=== PATIENT | male | born 1960 | race Caucasian/White ===

== ENCOUNTER 2016-06-16 11:33 | Emergency (ER) ==
[2016-06-16 11:39] VITALS: BP 153/95; TEMP 97.5; BMI 27.8
--- NOTE | 2016-06-16 12:00 | ED.PDOC ---
General ED Provider: Dr. LIONEL HAYES JR Chief Complaint: Bite Stated Complaint: awakened by stinging pain last nite--saw small insect-- assumes it was spider--this am has swelling and tenderness to testicle--sl discoloration[End]OFF BROWN IN COLOR VERY SMALL 97.5 75 20 96% 153/95 11/05 Time Seen by Physician: 11:56 Mode of Arrival: Walk-In Information Source: Patient Exam Limitations: No limitations Primary Care Provider: JOY DOWELL Nursing and Triage Documentation Reviewed and Agree: No Review of Systems - Review Of Systems Constitutional: Reports: Malaise Eyes: Reports: No symptoms Ears, Nose, Mouth, Throat: Reports: No symptoms Respiratory: Reports: No symptoms Cardiac: Reports: No symptoms GI: Reports: No symptoms : Reports: No symptoms Musculoskeletal: Reports: No symptoms Skin: Reports: Bruising (5mm lesion right inferior scrotum with erythema and edemaabout 2cm firmness no eschar postitive abrasion) Neurological: Reports: Anxiety Endocrine: Reports: No symptoms Hematologic/Lymphatic: Reports: No symptoms All Other Systems: Other Past Medical History - Past Medical History Previously Healthy: Yes Endocrine: Reports: Hypothyroid Cardiovascular: Reports: Hypertension Respiratory: Reports: None Hematological: Reports: None Gastrointestinal: Reports: None Genitourinary: Reports: None Neuro/Psych: Reports: None Musculoskeletal: Reports: Other Cancer: Reports: Other Other Pertinent Past Medical History: 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 - Surgical History General Surgical History: Reports: Cholecystectomy, Orthopedic (left shoulder repair), Other (THYROIDECTOMY, STOMACH WRAP) - Family History Family History: Reports: Unknown - Social History Smoking Status: Former smoker Hx Substance Use: No Alcohol Screening: None Physical Exam - Physical Exam Appearance: Well-appearing Pain Distress: Moderate Neck: Supple Respiratory: Airway patent Skin: Warm, Dry (note lesion) Neurological: Sensation intact, Alert, Oriented Psychiatric: Anxious Re-Evaluation - Re-Evaluation Time of Re-Evaluation: 12:06 Status: Unchanged (STATES ALLERGIC TO ALL NSAIDS) - Re-Evaluation Time of Re-Evaluation: 12:38 (PATIENT AND FEEL IS INCREASING IN PAIN AND SWELLING NOTE PATIETN WIPES NOSE AFTER PUSHING ON GROIN LESION) Status: Unchanged Additional Comments: WILL RX BACTRIM Critical Care Note - Critical Care Note Total Time (mins): 0 Course - Course Orders, Labs, Meds: Orders Category Date Time Status Butorphanol Tartrate [Stadol] MEDS 06/16/16 12:04 Discontinued 2 mg IM ONCE STA Promethazine HCl [Phenergan 25 mg/ml Vial] MEDS 06/16/16 12:05 Discontinued 25 mg IM ONCE STA Medications Discontinued Medications Generic Name Dose Route Start Last Admin Trade Name Freq PRN Reason Stop Dose Admin Butorphanol Tartrate 2 mg 06/16/16 12:04 06/16/16 12:20 Stadol IM 06/16/16 12:05 2 mg ONCE STA Administration Promethazine HCl 25 mg 06/16/16 12:05 06/16/16 12:19 Phenergan 25 Mg/Ml Vial IM 06/16/16 12:06 25 mg ONCE STA Administration Vital Signs: Temp Pulse Resp BP Pulse Ox 06/16/16 11:33 97.5 F L 75 20 153/95 H 96 Departure - Departure Time of Disposition: 11:56 Disposition: HOME SELF-CARE Discharge Problem: Spider bite, venomous Instructions: Brown Re[place] Spider Bite (ED) Condition: Good Pt referred to PMD for follow-up: Yes Additional Instructions: REMOVER RUFFLES AND ITEMS UNDER BED HAVE JUST 4 LEGS IN CONTACT WITH GROUND STICKY TRAPS MAY ELIMINATE SPIDERS FROM HOUSE [place] FOR PAIN ICE PACKS FOUR TIMES A DAY RECHECK ONE WEEK PMD RETURN IF SIGNIFICANTLY MORE SWELLING OR DRAINAGE ANTIBIOTIC BACTRIM PRESCRIBED Prescriptions: Hydrocodone Bit/Acetaminophen [[place] 5-325] 1 - 2 tab PO Q6HR PRN #12 tablet PRN Reason: pain Sulfamethoxazole/Trimethoprim [Bactrim Ds Tablet] 1 tab PO Q12HR #20 tablet Allergies/Adverse Reactions: Allergies celecoxib [From Celebrex] Adverse Reaction (Verified 06/16/16 11:41) gabapentin [From Neurontin] Adverse Reaction (Verified 06/16/16 11:41) Latex, Natural Rubber Adverse Reaction (Verified 06/16/16 11:41) metaxalone [From Skelaxin] Adverse Reaction (Verified 06/16/16 11:41) NSAIDS (Non-Steroidal Anti-Inflamma Adverse Reaction (Verified 06/16/16 11:41) rofecoxib [From Vioxx] Adverse Reaction (Verified 06/16/16 11:41) tramadol HCl [From Ultram] Adverse Reaction (Verified 06/16/16 11:41) Home Medications: Ambulatory Orders Amlodipine Besylate [Norvasc] 10 mg PO DAILY 04/06/14 Hydrochlorothiazide 25 mg PO DAILY 04/06/14 Levothyroxine Sodium [Synthroid] 175 mcg PO DAILY 04/06/14 Lisinopril [Zestril] 40 mg PO DAILY 04/06/14 Multivitamin/Iron/Folic Acid [Daily Multiple Tablet] 1 each PO DAILY 04/06/14 Pantoprazole Sodium [Protonix] 40 mg PO BID #60 tablet. 10/26/14 Carvedilol 12.5 mg PO BID 11/25/15 Hydrocodone Bit/Acetaminophen [[place] 5-325] 1 - 2 tab PO Q6HR PRN #12 tablet Sulfamethoxazole/Trimethoprim [Bactrim Ds Tablet] 1 tab PO Q12HR #20 tablet
[2016-06-16] MEDS ORDERED: STADOL IM STA (12:04)
[2016-06-16] MEDS ORDERED: PHENERGAN 25 MG/ML VIAL IM STA (12:05)
== END 2016-06-16 13:04 | disposition home or self-care (01) ==
LOC: ED 11:33
DX: T63.331A Toxic effect of venom of brown recluse spider, accidental (unintentional), initial encounter (principal)
CPT/HCPCS: 96372; 99282

== ENCOUNTER 2016-08-14 16:30 | Emergency (ER) | payer OTHER ==
[2016-08-14 16:37] VITALS: BP 123/88; TEMP 97.9; BMI 26.9
[2016-08-14 16:59] LABS: BASOPHILS % (AUTO) 0.4 % (0.0-3.0); EOSINOPHILS # (AUTO) 0.1 K/ul (0.0-0.7); EOSINOPHILS % (AUTO) 0.8 % (0.0-7.0); HEMATOCRIT 38.1 % (42.0-52.0); HEMOGLOBIN 13.8 g/dl (14.0-18.0); IMMATURE GRANULOCYTE % (AUTO) 0.6 % (0.0-5.0); LYMPHOCYTES % (AUTO) 14.6 (10.0-50.0); MEAN CORPUSCULAR HEMOGLOBIN 30.8 pg (27.0-31.0); MEAN CORPUSCULAR HGB CONC 36.2 (31.8-35.4); MONOCYTES # (AUTO) 0.4 K/uL (0.4-2.0); MONOCYTES % (AUTO) 6.2 (0-10); NEUTROPHILS # (AUTO) 5.5 K/ul (2.0-6.9); NEUTROPHILS % (AUTO) 77.4; PLATELET COUNT 230 10^3/uL (140-440); RED BLOOD COUNT 4.48 10^6/ul (4.70-6.10); WHITE BLOOD COUNT 7.14 K/ul (4.2-10.2)
[2016-08-14 17:27] LABS: ALANINE AMINOTRANSFERASE 23 U/L (12-78); ALBUMIN/GLOBULIN RATIO 1.29; ALKALINE PHOSPHATASE 56 U/L (50-136); AMYLASE 60 U/L (25-115); ANION GAP 15.8; ASPARTATE AMINO TRANSFERASE 18 U/L (15-37); BILIRUBIN,TOTAL 0.65 mg/dL (0.00-1.20); BLOOD UREA NITROGEN 15 mg/dL (7-18); BUN/CREATININE RATIO 13.27; CALCIUM 9.1 mg/dL (8.2-10.2); CARBON DIOXIDE 22 mmol/L (21-32); CHLORIDE 103 mmol/L (98-107); CREATINE KINASE 94 U/L; CREATININE 1.13 mg/dL (0.60-1.10); GLUCOSE 109 mg/dL (70-100); LIPASE 19 U/L (8-78); POTASSIUM 3.8 mmol/L (3.5-5.1); SODIUM 137 mmol/L (136-145); TOTAL PROTEIN 7.1 g/dL (6.4-8.2)
[2016-08-14 17:42] LABS: ADD URINE MICROSCOPIC YES; BILIRUBIN,URINE 1+ (NEGATIVE); KETONES,URINE 1+ (NEGATIVE); LEUKOCYTE ESTERASE ,URINE Negative (NEGATIVE); NITRITE,URINE Negative (NEGATIVE); PROTEIN,URINE 1+ (NEGATIVE); URINE, BLOOD Negative (NEGATIVE)
[2016-08-14 17:43] LABS: BACTERIA,URINE TRACE (NOT PRESENT)
[2016-08-14 17:47] LABS: COCAIN SCREEN,URINE NEGATIVE (NEGATIVE)
--- NOTE | 2016-08-14 18:08 | CT ---
Examination: CT abdomen and pelvis without contrast 08/14/2016 Clinical information: Vomiting, abdominal pain. Comparison: 10/26/2015. TECHNIQUE: Noncontrast helical imaging from the lung bases to the symphysis pubis. 3 mm axial, sag ittal and coronal images are submitted for review. FINDINGS: Axial images through the lung bases demonstrate a moderate-sized hiatal hernia. No conso lidative infiltrate or pleural effusion is seen. The noncontrast CT appearance of the liver, spleen , and pancreas within normal limits. A 14 mm peripherally calcified structure within the epigastric region may represent a calcified node or fat necrosis. This does not appear to be associated with the splenic artery or adrenal gland. Mild low density nodular enlargement of the left adrenal gland most compatible with benign adenomatous enlargement. Noncontrast CT appearance of the right adrena l gland is within normal limits. There are cholecystectomy clips within the gallbladder fossa. The kidneys are normal in size and configuration. There is no hydronephrosis or obvious urolithiasis. The abdominal aorta is normal in course and caliber. No free fluid is seen within the abdomen or pel vis. There is no bowel obstruction. There is colonic diverticulosis without evidence of diverticul itis. A normal appendix is identified. There is no inflammatory fat stranding. Within the pelvis, urinary bladder is partially collapsed. Seminal vesicles are symmetric in size and attenuation. T here are degenerative changes throughout the lumbar spine. There is a retrolisthesis of L3 on L4. L 2-L3 through L4-L5 vacuum disc. Multilevel hypertrophic facet arthropathy. Overall, no significant interval change given differences in scan technique when compared to 10/25/2014. Impression: 1. No CT evidence of acute abnormality within the abdomen or pelvis. No significant change compare d to 10/25/2014. 2. Hiatal hernia. 3. Cholecystectomy clips. 4. Benign adenomatous enlargement of the left adrenal gland. 5. Colonic diverticulosis without diverticulitis. 6. Degenerative changes lumbar spine.
--- NOTE | 2016-08-14 18:12 | ED.PDOC ---
General ED Provider: Dr. BRYAN MARINO Chief Complaint: Nausea/Vomiting Stated Complaint: n/v/ abdominal pain Time Seen by Physician: 16:30 Mode of Arrival: Walk-In Information Source: Patient Exam Limitations: No limitations Primary Care Provider: GARRET BRODERICK Nursing and Triage Documentation Reviewed and Agree: Yes GI Complaint Exam - Abdominal Pain Complaint/Exam Onset: Gradual Duration: 1 day Symptoms Are: Resolved Timing: Intermittent Initial Severity: Moderate Current Severity: None Location of Pain: Diffuse Character: Reports: Dull, Cramping Aggravating: Reports: None Alleviating: Reports: None Associated Signs and Symptoms: Denies: Diaphoresis, Fever, Cough, Chest pain, Dizziness, Back pain, Constipation, Blood in stool, Dysuria, Urinary frequency, Decreased urine output, Decreased appetite, Discharge, Nausea, Vomiting, Diarrhea, Decreased activity Cardiac Risk Factors: Reports: None, Hypertension Testicular Torsion Risk Factors: Reports: None Surgical Obstruction Risk Factors: Reports: None Related Surgical History: Reports: None Abdominal Findings: Present: None Differential Diagnoses: Bowel Obstruction, Diverticulitis Quality Indicators for AMI: EKG in 10min. Quality Indicators for Cardiac Chest Pain: EKG in 10min. Quality Indicator For Non-Traumatic Chest Pain/Syncope: EKG Performed Review of Systems - Review Of Systems Constitutional: Reports: No symptoms Eyes: Reports: No symptoms Ears, Nose, Mouth, Throat: Reports: No symptoms Respiratory: Reports: No symptoms Cardiac: Reports: No symptoms GI: Reports: Abdominal pain, Nausea, Vomiting : Reports: No symptoms Musculoskeletal: Reports: No symptoms Skin: Reports: No symptoms Neurological: Reports: No symptoms Endocrine: Reports: No symptoms Hematologic/Lymphatic: Reports: No symptoms All Other Systems: Reviewed and Negative Past Medical History - Past Medical History Previously Healthy: Yes Endocrine: Reports: Hypothyroid Cardiovascular: Reports: Hypertension Respiratory: Reports: None Hematological: Reports: None Gastrointestinal: Reports: None Genitourinary: Reports: None Neuro/Psych: Reports: None Musculoskeletal: Reports: Other Cancer: Reports: Other Other Pertinent Past Medical History: 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 - Surgical History General Surgical History: Reports: Cholecystectomy, Orthopedic (left shoulder repair), Other (THYROIDECTOMY, STOMACH WRAP) - Family History Family History: Reports: Unknown - Social History Smoking Status: Former smoker Hx Substance Use: No Alcohol Screening: None - Immunizations Tetanus Shot up to Date: No Physical Exam - Physical Exam Appearance: Well-appearing, No pain distress, Well-nourished Eyes: [place], EOMI, Conjunctiva clear ENT: Ears normal, Nose normal, Oropharynx normal Respiratory: Airway patent, Breath sounds clear, Breath sounds equal, Respirations nonlabored Cardiovascular: RRR, Pulses normal, No rub, No murmur GI/: Soft, Nontender, No masses, Bowel sounds normal, No Organomegaly Musculoskeletal: Normal strength, ROM intact, No edema, No calf tenderness Skin: Warm, Dry, Normal color Neurological: Sensation intact, Motor intact, Reflexes intact, Cranial nerves intact, Alert, Oriented Psychiatric: Affect appropriate, Mood appropriate Interpretation - Radiology Interpretation Radiology Interpretation By: Radiologist Radiology Results: No acute changes Critical Care Note - Critical Care Note Total Time (mins): 0 Course - Course Hematology/Chemistry: 08/14/16 16:50 08/14/16 16:50 Orders, Labs, Meds: Lab Review 08/14/16 08/14/16 08/14/16 16:50 17:00 17:30 WBC 7.14 RBC 4.48 L Hgb 13.8 L Hct 38.1 L MCV 85.0 MCH 30.8 MCHC 36.2 H RDW Coeff of [place] 12.5 Plt Count 230 Immature Gran % (Auto) 0.6 Neut % (Auto) 77.4 Lymph % (Auto) 14.6 [place] % (Auto) 6.2 Eos % (Auto) 0.8 Baso % (Auto) 0.4 Immature Gran # (Auto) 0.0 Neut # 5.5 Lymph # 1.0 [place] # 0.4 Eos # 0.1 Baso # 0.0 Sodium 137 Potassium 3.8 Chloride 103 Carbon Dioxide 22 Anion Gap 15.8 BUN 15 Creatinine 1.13 H Estimated GFR (MDRD) 68.00 BUN/Creatinine Ratio 13.27 Glucose 109 H Lactic Acid 7.7 Calcium 9.1 Total Bilirubin 0.65 AST 18 ALT 23 Alkaline Phosphatase 56 Total Creatine Kinase 94 Troponin I < 0.0100 Total Protein 7.1 Albumin 4.0 Globulin 3.1 Albumin/Globulin Ratio 1.29 Amylase 60 Lipase 19 Procalcitonin < 0.05 Urine Color Yellow Urine Clarity Clear Urine pH 6.0 Ur Specific [place] 1.020 Urine Protein 1+ Urine Glucose (UA) Negative Urine Ketones 1+ Urine Blood Negative Urine Nitrite Negative Urine Bilirubin 1+ Urine Urobilinogen 0.2 Ur Leukocyte Esterase Negative Urine Microscopic RBC 2-5 Ur Squamous Epith Cells 0-2 Urine Bacteria Trace Urine Opiates Screen Negative Ur Oxycodone Screen Negative Urine Methadone Screen Negative Ur Propoxyphene Screen Negative Ur Barbiturates Screen Negative U Tricyclic Antidepress Negative Ur Phencyclidine Scrn Negative Ur Amphetamine Screen Negative U Methamphetamines Scrn Negative U Benzodiazepines Scrn Negative Urine Cocaine Screen Negative U Cannabinoids Screen Positive Orders Category Date Time Status EKG-(ED ONLY) Stat CARDIO 08/14/16 16:47 Completed AMYLASE Stat LAB 08/14/16 16:50 Completed BLOOD CULTURE Stat LAB 08/14/16 16:50 Received CBC W/ AUTO DIFF Stat LAB 08/14/16 16:50 Completed COMPREHENSIVE METABOLIC PANEL Stat LAB 08/14/16 16:50 Completed CREATINE KINASE Stat LAB 08/14/16 16:50 Completed DRUG SCREEN (RAPID FOR ED) [DRUG SCREEN, URINE, RAPID] LAB 08/14/16 17:00 Completed Stat LACTIC ACID Stat LAB 08/14/16 16:50 Completed LIPASE Stat LAB 08/14/16 16:50 Completed PROCALCITONIN Stat LAB 08/14/16 16:50 Completed TROPONIN I Stat LAB 08/14/16 16:50 Completed URINALYSIS C & S IF INDICATED Stat LAB 08/14/16 17:[address] ABDOMEN/PELVIS WO CONTRAST Stat RADS 08/14/16 16:46 Completed Vital Signs: Temp Pulse Resp BP Pulse Ox 08/14/16 16:30 97.9 F 85 20 123/88 96 Departure - Departure Time of Disposition: 18:12 Disposition: HOME SELF-CARE Discharge Problem: Abdominal pain Qualifiers: Abdominal location: generalized Qualifier Code: (R10.84) Generalized abdominal pain Instructions: Abdominal Pain (ED) Condition: Good Pt referred to PMD for follow-up: No Allergies/Adverse Reactions: Allergies celecoxib [From Celebrex] Adverse Reaction (Verified 08/14/16 16:41) gabapentin [From Neurontin] Adverse Reaction (Verified 08/14/16 16:41) Latex, Natural Rubber Adverse Reaction (Verified 08/14/16 16:41) metaxalone [From Skelaxin] Adverse Reaction (Verified 08/14/16 16:41) NSAIDS (Non-Steroidal Anti-Inflamma Adverse Reaction (Verified 08/14/16 16:41) rofecoxib [From Vioxx] Adverse Reaction (Verified 08/14/16 16:41) tramadol HCl [From Ultram] Adverse Reaction (Verified 08/14/16 16:41) Home Medications: Ambulatory Orders Amlodipine Besylate [Norvasc] 10 mg PO DAILY 04/06/14 Hydrochlorothiazide 25 mg PO DAILY 04/06/14 Levothyroxine Sodium [Synthroid] 175 mcg PO DAILY 04/06/14 Lisinopril [Zestril] 40 mg PO DAILY 04/06/14 Multivitamin/Iron/Folic Acid [Daily Multiple Tablet] 1 each PO DAILY 04/06/14 Pantoprazole Sodium [Protonix] 40 mg PO BID #60 tablet. 10/26/14 Carvedilol 12.5 mg PO BID 11/25/15
== END 2016-08-14 18:28 | disposition home or self-care (01) ==
LOC: ED 16:30
DX: R10.84 Generalized abdominal pain (principal); R11.2 Nausea with vomiting, unspecified; R80.9 Proteinuria, unspecified; E03.9 Hypothyroidism, unspecified; I10 Essential (primary) hypertension; Z79.899 Other long term (current) drug therapy
CPT/HCPCS: 36415; 80053; 80306; 81001; 82150; 82550; 83605; 83690; 84145; 84484; 85025; 87040; 93005; 93010; 99284

== ENCOUNTER 2016-08-17 01:44 | Outpatient (CLI) | END 2016-08-17 01:45 | disposition home or self-care (01) | LOC: AMBL 01:44 | PROVIDERS: ATTEND Family Medicine | DX: R11.2 Nausea with vomiting, unspecified (principal); R10.9 Unspecified abdominal pain; K44.9 Diaphragmatic hernia without obstruction or gangrene; K21.9 Gastro-esophageal reflux disease without esophagitis; I10 Essential (primary) hypertension ==

== ENCOUNTER 2016-12-21 11:24 | Emergency (ER) ==
[2016-12-21 11:28] VITALS: BP 118/80; TEMP 97.5; BMI 24.4
--- NOTE | 2016-12-21 11:41 | ED.PDOC ---
General ED Provider: Dr. BRYAN MARINO Chief Complaint: Tooth Problem Stated Complaint: DENTAL PAIN Time Seen by Physician: 11:24 Mode of Arrival: Walk-In Information Source: Patient Exam Limitations: No limitations Primary Care Provider: GARRET BRODERICK Nursing and Triage Documentation Reviewed and Agree: Yes EENT Complaint Exam - Dental/Oral Complaint/Exam Mechanism of Injury: No known trauma Onset/Duration: 2 WEEKS Symptoms Are: Still present Timing: Intermittent Initial Severity: Moderate Current Severity: Moderate Character: Reports: Throbbing Aggravating: Reports: Heat, Cold, Chewing Alleviating: Reports: None Associated Signs and Symptoms: Denies: Swelling, Discharge, Fever, Foul odor, Foul taste in mouth Related History: Reports: Similar episode Tooth Findings: Present: Gross decay, Gross caries Facial Swelling Present: No Bleeding Present: No Oropharynx Findings: Absent: Clots, Active bleeding Septal Hematoma: No Foreign Body Present: No Dysphagia Present: No Drooling Present: No Asymmetrical Tonsillar Swelling Present: No Uvula Midline: No Desi-tonsillar Fluctuence: No Trismus Present: No Palatal Petechiae Present: No Scarlatinaform Rash Present: No Teeth Picture: 1 - DECAY Differential Diagnoses: Fractured Tooth Review of Systems - Review Of Systems Constitutional: Reports: No symptoms Eyes: Reports: No symptoms Ears, Nose, Mouth, Throat: Reports: No symptoms Respiratory: Reports: No symptoms Cardiac: Reports: No symptoms GI: Reports: No symptoms : Reports: No symptoms Musculoskeletal: Reports: No symptoms Skin: Reports: No symptoms Neurological: Reports: No symptoms Endocrine: Reports: No symptoms Hematologic/Lymphatic: Reports: No symptoms All Other Systems: Reviewed and Negative Past Medical History - Past Medical History Previously Healthy: Yes Endocrine: Reports: Hypothyroid Cardiovascular: Reports: Hypertension Respiratory: Reports: None Hematological: Reports: None Gastrointestinal: Reports: None Genitourinary: Reports: None Neuro/Psych: Reports: None Musculoskeletal: Reports: Other Cancer: Reports: Other Other Pertinent Past Medical History: 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 - Surgical History General Surgical History: Reports: Cholecystectomy, Orthopedic (left shoulder repair), Other (THYROIDECTOMY, STOMACH WRAP) - Family History Family History: Reports: Unknown - Social History Smoking Status: Former smoker Hx Substance Use: No Alcohol Screening: None Physical Exam - Physical Exam Appearance: Well-appearing, No pain distress, Well-nourished Eyes: [place], EOMI, Conjunctiva clear ENT: Ears normal, Nose normal, Oropharynx normal Respiratory: Airway patent, Breath sounds clear, Breath sounds equal, Respirations nonlabored Cardiovascular: RRR, Pulses normal, No rub, No murmur GI/: Soft, Nontender, No masses, Bowel sounds normal, No Organomegaly Musculoskeletal: Normal strength, ROM intact, No edema, No calf tenderness Skin: Warm, Dry, Normal color Neurological: Sensation intact, Motor intact, Reflexes intact, Cranial nerves intact, Alert, Oriented Psychiatric: Affect appropriate, Mood appropriate Critical Care Note - Critical Care Note Total Time (mins): 0 Course - Course Vital Signs: Temp Pulse Resp BP Pulse Ox 12/21/16 11:24 97.5 F L 72 18 118/80 96 Departure - Departure Time of Disposition: 11:40 Disposition: HOME SELF-CARE Discharge Problem: Toothache Instructions: Toothache (ED) Condition: Good Pt referred to PMD for follow-up: Yes Additional Instructions: Please call your Family Physician as soon as possible to schedule a follow-up appointment. Allergies/Adverse Reactions: Allergies celecoxib [From Celebrex] Adverse Reaction (Verified 12/21/16 11:28) gabapentin [From Neurontin] Adverse Reaction (Verified 12/21/16 11:28) Latex, Natural Rubber Adverse Reaction (Verified 12/21/16 11:28) metaxalone [From Skelaxin] Adverse Reaction (Verified 12/21/16 11:28) NSAIDS (Non-Steroidal Anti-Inflamma Adverse Reaction (Verified 12/21/16 11:28) rofecoxib [From Vioxx] Adverse Reaction (Verified 12/21/16 11:28) tramadol HCl [From Ultram] Adverse Reaction (Verified 12/21/16 11:28) Home Medications: Ambulatory Orders Amlodipine Besylate [Norvasc] 10 mg PO DAILY 04/06/14 Hydrochlorothiazide 25 mg PO DAILY 04/06/14 Levothyroxine Sodium [Synthroid] 175 mcg PO DAILY 04/06/14 Lisinopril [Zestril] 40 mg PO DAILY 04/06/14 Multivitamin/Iron/Folic Acid [Daily Multiple Tablet] 1 each PO DAILY 04/06/14 Pantoprazole Sodium [Protonix] 40 mg PO BID #60 tablet. 10/26/14 Carvedilol 12.5 mg PO BID 11/25/15
== END 2016-12-21 11:50 | disposition home or self-care (01) ==
LOC: ED 11:24
DX: K08.89 Other specified disorders of teeth and supporting structures (principal); K02.7 Dental root caries
CPT/HCPCS: 99282

== ENCOUNTER 2018-01-19 10:14 | Emergency (ER) ==
[2018-01-19 10:15] VITALS: BMI 24.4
[2018-01-19 10:26] VITALS: BP 147/93; TEMP 97.6
--- NOTE | 2018-01-19 11:18 | ED.PDOC ---
General ED Provider: Dr. BRYAN MARINO Chief Complaint: Chest Wall Injury/Pain Stated Complaint: CHEST WALL INJURY LUQ WELL FELL OR TRIPPED OVER HIS PET DOG Time Seen by Physician: 10:17 Mode of Arrival: Walk-In Information Source: Patient Exam Limitations: No limitations Primary Care Provider: GARRET BRODERICK Nursing and Triage Documentation Reviewed and Agree: Yes Does patient meet sepsis criteria?: No If yes, has appropriate treatment been initiated?: No System Inflammatory Response Syndrome: Not Applicable (PLEASE SEE PHOTOS ) Sepsis Protocol: For patient's 13 years and over: Temp is 96.8 and below OR 101 and greater Pulse >90 BPM Resp >20/minute Acutely Altered Mental Status Are patient's symptoms suggestive of a new infection, such as: -Pneumonia -Skin, Soft Tissue -Endocarditis -UTI -Bone, Joint Infection -Implantable Device -Acute Abdominal Infection -Wound Infection -Meningitis -Blood Stream Catheter Infection -Unknown Trauma/Injury Complaint Exam - Trauma Complaint/Exam Location of Pain or Injury: Reports: Chest, Abdomen. Denies: Head, Scalp, Face , Neck, RUE, LUE, Back, RLE, LLE Mechanism of Injury: Reports: Fall Onset/Duration: TODAY Symptoms Are: Still present Timing of Treatment: Immediate Initial Severity: Mild Current Severity: Mild Character: Reports: Aching Aggravating: Reports: Movement Alleviating: Reports: Rest Associated Signs and Symptoms: Denies: LOC, Confusion, Memory loss, Lethargy, Vomiting, Bleeding, Bruising, Swelling, Extremity disuse, Painful respiration, Hoarseness, Dysphagia, Hemoptysis, Significant blood loss Penetrating Injury Risk Factors: Reports: None Related Surgical History: Reports: None Nexus Low Risk Criteria: No post-midline CS tender, No evidence of intoxicat., No Altered LOC, No focal neuro deficit, No distracting injuries Immobilization Removed Post Exam: No Glascow Coma Scale (see protocol): 15 Compartment Syndrome Risk Factors: Present: Pain Trauma Findings: Absent: [place] eyes, Hemotympanum, Nasal deformity, Dental tenderness, Dental injury, Dental malocclusion, Neck tenderness, Neck spasm, SubQ Air, Crepitus, Airway obstructed, Trachea displaced, Labored respirations, Decreased breath sounds, Muffled heart sounds, Weak pulses, Absent pulses, Abdominal distention, Pelvic tenderness, Pelvic instability Review of Systems - Review Of Systems Constitutional: Reports: No symptoms Eyes: Reports: No symptoms Ears, Nose, Mouth, Throat: Reports: No symptoms Respiratory: Reports: No symptoms Cardiac: Reports: Chest pain (WALL LEFT SIDED ) GI: Reports: No symptoms : Reports: No symptoms Musculoskeletal: Reports: No symptoms Skin: Reports: No symptoms Neurological: Reports: No symptoms Endocrine: Reports: No symptoms Hematologic/Lymphatic: Reports: No symptoms All Other Systems: Reviewed and Negative Past Medical History - Past Medical History Previously Healthy: Yes Endocrine: Reports: Hypothyroid Cardiovascular: Reports: Hypertension Respiratory: Reports: None Hematological: Reports: None Gastrointestinal: Reports: None Genitourinary: Reports: None Neuro/Psych: Reports: None Musculoskeletal: Reports: Other Cancer: Reports: Other Other Pertinent Past Medical History: 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 - Surgical History General Surgical History: Reports: Cholecystectomy, Orthopedic (left shoulder repair), Other (THYROIDECTOMY, STOMACH WRAP) - Family History Family History: Reports: Unknown - Social History Smoking Status: Former smoker Hx Substance Use: No Alcohol Screening: None Physical Exam - Physical Exam Appearance: Well-appearing, No pain distress, Well-nourished Eyes: [place], EOMI, Conjunctiva clear ENT: Ears normal, Nose normal, Oropharynx normal Respiratory: Airway patent, Breath sounds clear, Breath sounds equal, Respirations nonlabored Cardiovascular: RRR, Pulses normal, No rub, No murmur GI/: Soft, Nontender, No masses, Bowel sounds normal, No Organomegaly Musculoskeletal: Normal strength, ROM intact, No edema, No calf tenderness Skin: Warm, Dry, Normal color Neurological: Sensation intact, Motor intact, Reflexes intact, Cranial nerves intact, Alert, Oriented Psychiatric: Affect appropriate, Mood appropriate Re-Evaluation - Re-Evaluation Time of Re-Evaluation: 11:19 (July PRESENT) Status: Improved Pain Level: 06/05 Appearance: NAD Lungs: Clear Skin: Warm and Dry Neuro: Alert and Oriented X3 CV: RRR Critical Care Note - Critical Care Note Total Time (mins): 0 Course - Course Orders, Labs, Meds: Orders Category Date Time Status CT ABDOMEN W/O CONTRAST Stat RADS 01/19/18 11:[address] CHEST W/O CONTRAST Stat RADS 01/19/18 11:01 Ordered Vital Signs: Temp Pulse Resp BP Pulse Ox 01/19/18 10:15 97.6 F 72 20 147/93 H 96 Departure - Departure Time of Disposition: 12:00 Disposition: HOME SELF-CARE Discharge Problem: Chest wall pain, Chest injury Instructions: Chest Wall Pain (ED), Chest Pain (ED) Condition: Good Pt referred to PMD for follow-up: Yes IPMP verified?: No Additional Instructions: Please call your Family Physician as soon as possible to schedule a follow-up appointment. Prescriptions: Hydrocodone/Acetaminophen [[place] 10-325 Tablet] 1 each PO Q8HR #7 tablet Allergies/Adverse Reactions: Allergies celecoxib [From Celebrex] Adverse Reaction (Verified 12/21/16 11:28) gabapentin [From Neurontin] Adverse Reaction (Verified 12/21/16 11:28) Latex, Natural Rubber Adverse Reaction (Verified 12/21/16 11:28) metaxalone [From Skelaxin] Adverse Reaction (Verified 12/21/16 11:28) NSAIDS (Non-Steroidal Anti-Inflamma Adverse Reaction (Verified 12/21/16 11:28) rofecoxib [From Vioxx] Adverse Reaction (Verified 12/21/16 11:28) tramadol HCl [From Ultram] Adverse Reaction (Verified 12/21/16 11:28) Home Medications: Ambulatory Orders Amlodipine Besylate [Norvasc] 10 mg PO DAILY 04/06/14 Hydrochlorothiazide 25 mg PO DAILY 04/06/14 Levothyroxine Sodium [Synthroid] 175 mcg PO DAILY 04/06/14 Lisinopril [Zestril] 40 mg PO DAILY 04/06/14 Multivitamin/Iron/Folic Acid [Daily Multiple Tablet] 1 each PO DAILY 04/06/14 Pantoprazole Sodium [Protonix] 40 mg PO BID #60 tablet. 10/26/14 Carvedilol 12.5 mg PO BID 11/25/15 Hydrocodone/Acetaminophen [[place] 10-325 Tablet] 1 each PO Q8HR #7 tablet Disposition Discussed With: Patient
--- NOTE | 2018-01-19 11:51 | CT ---
EXAM: CT Abdomen without contrast. HISTORY: Initial presentation for left upper quadrant and left lower posterior rib pain following a fall. COMPARISON: 08/14/2016. TECHNIQUE: Multiple axial images of the abdomen were obtained without intravenous contrast. Images were reformatted in the coronal and sagittal plane. FINDINGS: Please note that evaluation of the abdominal structures is limited due to lack of intraven ous contrast. No acute abnormality identified in the lung bases. No lower left rib fracture identified. Degenerat florin changes are present in the spine. Partial sacralization of L5 on the right noted. Gallbladder is absent. The liver, pancreas, spleen, adrenal glands, and kidneys are without acute ab normality. Benign enlargement left adrenal gland noted. Moderate sized hiatal hernia is present. Colonic diverticulosis noted. The appendix is normal. The re is no evidence for bowel obstruction. No free fluid or free air identified. Atherosclerotic calc ifications are present. IMPRESSION: No acute abnormality within the abdomen.
--- NOTE | 2018-01-19 11:51 | CT ---
EXAM: CT chest without contrast HISTORY: Fall with left chest wall pain COMPARISON: Chest x-ray 07/19/2014 TECHNIQUE: Serial axial images of the chest were obtained from the lung apices to the upper abdomen without contrast. These were viewed in multiple planes. FINDINGS: The thyroid is normal. The visualized vessels are unremarkable without aneurysm or stenos is. The heart is normal in size without pericardial effusion. There are multiple nonpathologically enlarged mediastinal or hilar lymph nodes. There is a small hiatal hernia with postsurgical changes. There is no pneumothorax or pleural effusion. There is mild emphysema. There is minimal right lung b ase atelectasis. There is no consolidation, nodule or mass. The ribs demonstrate no cortical irregularity or displaced fracture. The osseous structures are unre markable. The structures in the abdomen pelvis are unremarkable. IMPRESSION: 1. No acute cardiopulmonary process or displaced rib fracture. 2. Small hiatal hernia with postsurgical changes. 3. Mild emphysema.
== END 2018-01-19 12:27 | disposition home or self-care (01) ==
LOC: ED 10:14
DX: R07.89 Other chest pain (principal); R10.12 Left upper quadrant pain; W01.0XXA Fall on same level from slipping, tripping and stumbling without subsequent striking against object, initial encounter
CPT/HCPCS: 99283

== ENCOUNTER 2018-02-14 08:02 | Outpatient (CLI) | payer OTHER | END 2018-02-14 08:03 | disposition home or self-care (01) | LOC: LAB 08:02 | PROVIDERS: ATTEND Internal Medicine | DX: E89.0 Postprocedural hypothyroidism (principal); I10 Essential (primary) hypertension; R53.83 Other fatigue; Z00.00 Encounter for general adult medical examination without abnormal findings; Z12.5 Encounter for screening for malignant neoplasm of prostate | CPT/HCPCS: 36415; 80053; 80061; 84403; 84443; 85027; 86800; 86803 ==

== ENCOUNTER 2018-07-23 02:06 | Outpatient (CLI) | END 2018-07-23 02:20 | disposition short-term general hospital (02) | LOC: AMBL 02:06 | PROVIDERS: ATTEND Family Medicine | DX: K46.9 Unspecified abdominal hernia without obstruction or gangrene (principal); R19.03 Right lower quadrant abdominal swelling, mass and lump; N50.819 Testicular pain, unspecified; R00.0 Tachycardia, unspecified ==